=== PATIENT | male | born 1955 | race Caucasian/White ===

== ENCOUNTER 2022-03-15 05:53 | Inpatient (IN) ==
--- NOTE | 2022-01-25 10:02 | PAT Medication Instructions ---
Medication Instructions Date of Service January 25, 2022 Home Medications Medication Instructions Recorded lisinopril 10 mg tablet 10 mg PO .COMPLEX #30 tabs 10/19/21 lisinopril 5 mg tablet 5 mg PO .COMPLEX #30 tabs 10/19/21 paroxetine HCl 10 mg tablet (Paxil) 10 mg PO DAILY #30 tabs 10/22/21 atorvastatin 40 mg tablet 40 mg PO HS #30 tabs 12/21/21 metoprolol succinate 50 mg 50 mg PO DAILY #30 tabs 12/21/21 tablet,extended release 24 hr lisinopril 10 mg tablet 10 mg PO .COMPLEX lisinopril 5 mg tablet 5 mg PO .COMPLEX paroxetine HCl 10 mg tablet (Paxil) 10 mg PO DAILY aspirin 81 mg tablet,delayed release 81 mg PO QAM atorvastatin 40 mg tablet 40 mg PO HS metoprolol succinate 50 mg tablet,extended release 24 hr 50 mg PO DAILY albuterol sulfate 90 mcg/actuation aerosol inhaler (Ventolin HFA) 90 mcg inhalation QID PRN clopidogrel 75 mg tablet 75 mg PO QAM fluticasone fur. 100 mcg-umeclid 62.5 mcg-vilant 25 mcg inhalat.powder (Trelegy Ellipta) 100 inh inhalation QAM Continue as directed paroxetine HCl 10 mg tablet (Paxil) 10 mg PO DAILY metoprolol succinate 50 mg tablet,extended release 24 hr 50 mg PO DAILY Do NOT take day of surgery, can take evening before surgery if also taken at night: lisinopril 10 mg tablet 10 mg PO .COMPLEX lisinopril 5 mg tablet 5 mg PO .COMPLEX ASK your prescriber and surgeon aspirin 81 mg tablet,delayed release 81 mg PO QAM clopidogrel 75 mg tablet 75 mg PO QAM DO NOT take the morning of surgery lisinopril 10 mg tablet 10 mg PO .COMPLEX lisinopril 5 mg tablet 5 mg PO .COMPLEX Take morning of surgery With a small sip of water, OTHERWISE NOTHING TO EAT OR DRINK AFTER MIDNIGHT: albuterol sulfate 90 mcg/actuation aerosol inhaler (Ventolin HFA) 90 mcg inhalation QID PRN(use if needed; please bring with you to hospital day of surgery if possible) fluticasone fur. 100 mcg-umeclid 62.5 mcg-vilant 25 mcg inhalat.powder (Trelegy Ellipta) 100 inh inhalation QAM Take evening before surgery atorvastatin 40 mg tablet 40 mg PO HS albuterol sulfate 90 mcg/actuation aerosol inhaler (Ventolin HFA) 90 mcg inhalation QID PRN(if needed) Other Notes If you have any questions please call us at [phone] or [phone] or [phone] or [phone]
--- NOTE | 2022-02-01 08:16 | Anesthesiology Consultation ---
Date of Service February 01, 2022 Assessment & Plan (1) Encounter for pre-operative examination: - awaiting PCP management of hyponatremia. Workload note sent. - new degree of hyponatremia at 126. Case discussed regarding this and overall with Dr. Garza who advised notifying PCP regarding hyponatremia for evaluation and intervention as much as possible prior to upcoming intervention for severe left carotid artery re-stenosis. He advised nothing further needed from pulmonology standpoint. Raina with Dr. Vines's office made aware. - excessive alcohol intake. - cardiology office visit 12/21/21 [place]: "...Coronary artery calcifications: We discussed the diagnosis. No angina or heart failure symptoms. Ischemic evaluation recommended if he should develop symptoms concerning for angina. Otherwise, aggressive medical therapy. Continue aspirin 81 mg daily. Continue beta-valentino. Continue statin therapy but recommend high-intensity statin therapy. Recommended that he stop smoking. Contact the office immediately for symptoms concerning for ischemic heart disease. 911 for angina that does not resolve within 5 minutes...Carotid artery stenosis s/p left carotid endarterectomy: Asymptomatic. Continue to follow with vascular. Aggressive medical therapy as above...Alcohol consumption: Recommended that he consume no more than 1 or 2 alcoholic beverages per day...Follow-up in 1 year..." - pulmonology office visit 11/23/21: "...abnormal CT chest...some shortness of breath with usual activities...occasional cough mostly in the morning with production of clear phlegm...centrilobular emphysema...functional and tries to go about usual activities at his own pace...uses Breo as directed and finds it helpful...still has some shortness of breath but mostly with moderate to strenuous activities. No prior PFT within the documentation...scheduled for PFT and 6 minutes walk test prior to next visit...transition patient from Breo to Trelegy...suspicion for possible obstructive sleep apnea...scheduled for overnight pulse oximetry..." Pt states did not yet complete testing ordered by pulmonology. - COVID screening: Per assessment on 02/01/2022: Travel screen negative, no known COVID-19 positive contacts or current COVID-19 related symptoms in past 2 weeks. Pt vaccinated. To surgeon's discretion if preop COVID testing needed. Chart Review Chart Review: Pending: Refer to Additional Notes / Consult section and Patient seen in Pre Admission Testing Teaching & Discussion Pre-Anesthesia Teaching/Discussion Notes: Instructed NPO after midnight before surgery, except medications with 15 cc of water. Medication instructions provided according to the PAT guidelines. History Surgery Operation Date: 02/08/22 08:00 Proposed Procedures p Left Transcarotid Artery Revascularization - Demond Vines MD Height/Weight Height: 5 ft 10 in Weight: 65.2 kg Allergies Allergy/AdvReac Type Severity Reaction Status Date / Time No Known Allergies Allergy Verified 01/24/22 10:41 Medications Home Medications Medication Instructions Recorded Confirmed Last Taken lisinopril 10 mg tablet 10 mg PO .COMPLEX #30 tabs 10/19/21 01/24/22 Unknown lisinopril 5 mg tablet 5 mg PO .COMPLEX #30 tabs 10/19/21 01/24/22 Unknown paroxetine HCl 10 mg tablet (Paxil) 10 mg PO DAILY #30 tabs 10/22/21 01/24/22 U nknown aspirin 81 mg tablet,delayed 81 mg PO QAM 12/21/21 01/24/22 Unknown release atorvastatin 40 mg tablet 40 mg PO HS #30 tabs 12/21/21 01/24/22 Unknown metoprolol succinate 50 mg 50 mg PO DAILY #30 tabs 12/21/21 01/24/22 Unknown tablet,extended release 24 hr albuterol sulfate 90 mcg/actuation 90 mcg inhalation QID PRN 01/24/22 01/24/22 Unknown aerosol inhaler (Ventolin HFA) Shortness Of Breath Or Wheezing clopidogrel 75 mg tablet 75 mg PO QAM 01/24/22 01/24/22 Unknown fluticasone fur. 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 Exercise / Class Metabolic Activity II 4-5 Yardwork/Stairs/Walk up hill (denies CP or SOB with 1 FOS) Past Family History Family History Father Leukemia Mother Heart disease Sister Breast cancer Denies family history of Ovarian cancer Prostate cancer Myocardial infarction Colorectal cancer Past Surgical History Surgical History (Updated 02/01/22 @ 08:42 by Clarissa Pittman PA-C) FH: carotid endarterectomy left, 2011 H/O arthroscopic knee surgery L H/O elbow surgery R S/P colonoscopy Past Anesthesia History No Hx of Anesthesia Complications and No Family Hx of Anesthesia Complications History of PONV No Hx of PONV and No Hx of Motion Sickness Social History Smoking Status: Current every day smoker tobacco type: cigarettes Smoking cigarettes per day: 20 per day- advised Do You Dip or Chew Tobacco: No Hx Alcohol Use: Yes (4-6 cans beer per day) Alcohol type: beer alcohol intake frequency: 3 or more drinks per day Hx Substance Use: No substance use type: does not use Review of Systems Patient denies chest pain, shortness of breath, dyspnea on exertion, snoring, witnessed apneas, reflux, fever, chills, cough, wheezing, or palpitations. Physical Exam Vital Signs Vitals BP 157/79 P 65 TEMP 98.1 SP02 99% on RA RESP 17 Physical Full cervical extension range of motion without pain TMD 3.5 finger breadths Mallampati Score 3 Dentition: intact, denies chipped or loose teeth, caps/crowns, implants or bridges Lungs: normal respiratory effort. Good air movement, mild wheezes noted RLL, no rales or rhonchi Cardiac: regular rate and rhythm, no murmurs noted Lab Results Anesthesia Preop Results Results Anesthesia Widget: WBC 8.13 K/ul (4.8-10.8) 02/01/22 Hgb 13.9 g/dl (14.0-18.0) L 02/01/22 Hct 40.8 % (40.1-51.0) 02/01/22 Plt 328 K/uL (130-400) 02/01/22 Na 126 mmol/L (136-145) L 02/01/22 K 4.6 mmol/L (3.5-5.1) 02/01/22 Cl 90 mmol/L (98-107) L 02/01/22 CO2 27 mmol/L (21-32) 02/01/22 BUN 7 mg/dl (6-23) 02/01/22 Creat 0.59 mg/dl (0.6-1.4) L 02/01/22 Glucose Level 80 mg/dl (70-99(Fasting)) 02/01/22 PT 10.3 Seconds (9.0-12.0) 02/01/22 PTT 30.8 Seconds (21.0-31.0) 02/01/22 INR 1.0 (0.9-1.1) 02/01/22 Blood Type A Positive 02/01/22 Antibody Screen NEGATIVE 02/01/22 Testing Electrocardiogram Date: 02/01/22 NSR, rate 67 bpm Chest X-Ray Date: 02/01/22 The lungs are hyperexpanded with similar changes. No focal lung consolidations to suggest pneumonia. No evidence for pulmonary edema. The heart is normal in size. No pleural effusions. No pneumothorax. Vascular calcifications are noted at the neck base. Mild anterior wedging within the mid thoracic spine vertebral bodies likely chronic. IMPRESSION: 1. No acute process within the chest. 2. Emphysema. Echocardiogram Date: 07/10/19 EF 52% Normal LV wall motion No significant valvular pathology Other Testing Neck CTA 12/06/21 There are vascular calcifications of the aortic arch. There is mild luminal narrowing of the proximal left subclavian artery. There is mild to moderate stenosis of the origin of the left vertebral artery. There are additional areas of mild luminal narrowing of the V2 segment of the left vertebral artery. The left vertebral artery is dominant. There are vascular calcifications of the origin of the left common carotid artery. There is prominent noncalcified plaque seen within the distal left common carotid artery. There is calcified and noncalcified plaque seen within the proximal cervical segment of the left ICA. The prominent noncalcified plaque within the proximal cervical segment of the left ICA measures 3.5 mm in thickness. There is approximately 69 percent stenosis of the proximal cervical segment of the left ICA. The extracranial left ICA is patent. The origin of the innominate artery is unremarkable. The origin of the right common carotid artery is unremarkable. There is approximately 46 percent stenosis of the proximal cervical segment of the right ICA. There is mild stenosis of the proximal right subclavian artery. The origin of the right vertebral artery is visualized. There is mild stenosis of the mid V2 segment of the right vertebral artery. The V4 segments of the vertebral arteries are patent. The left vertebral artery is dominant. There are patent bilateral PICAs. The basilar artery is patent. The proximal superior cerebellar arteries are patent. The bilateral posterior cerebral arteries are patent. The internal carotid arteries are patent through the skull base. There are vascular calcifications of the cavernous segments of the bilateral ICAs. The basilar artery is patent. The proximal superior cerebellar arteries are patent. The bilateral posterior cerebral arteries are patent. There is mild luminal narrowing of the cavernous segment of the left ICA. The left M1 segment is patent. The right M1 segment is patent. The proximal M2 branches are patent. The proximal A2 branches are patent. Additional findings: There is minimal anterolisthesis of C3 on C4. There is intervertebral disc space narrowing, endplate osteophyte formation, and endplate degenerative changes at C4-C5. The bones are osteopenic. The vertebral body heights are grossly maintained. There is multilevel facet hypertrophy of the cervical spine. There is asymmetric right facet arthropathy at C3-C4 and C4-C5. There is endplate osteophyte formation at T3-T4, T4-T5, T5-T6 and T6-T7. There is a Schmorl's node within the superior endplate of T7. There is mild mucosal thickening of the left frontal sinus. There is mild mucosal thickening of the ethmoid air cells. There is mucosal thickening with an air-fluid level and bubbly secretions seen within the left maxillary sinus, worrisome for sinusitis. There is scatter artifact from dental prosthetics. The mastoid air cells are clear. There are degenerative changes of the temporomandibular joints. There are postsurgical changes seen along the left side of the neck. No focal consolidation is identified within the lung apices. There is a right thyroid nodule that measures 5 mm. IMPRESSION 1. Approximately 69 percent stenosis of the proximal cervical segment of the left ICA. Prominent noncalcified plaque seen within the proximal cervical segm ent of the left ICA that measures 3.5 mm in thickness. 2. Approximately 46 percent stenosis of the proximal cervical segment of the right ICA. 3. Left maxillary sinusitis. 4. Additional findings as described above. Carotid duplex 11/10/21 70-99% stenosis L ICA 50-69% stenosis R ICA CT chest, abdomen and pelvis 11/10/21 Aeration is stable compared to previous. Stable pinpoint subcentimeter nodules are not changed. No significant new parenchymal lesions or nodules identified. Mild atherosclerotic calcification of the coronary arteries Stable chronic changes of the lung parenchyma No acute or active disease identified
--- NOTE | 2022-03-14 12:01 | History & Physical Report ---
Date of Service March 14, 2022 Assessment & Plan (1) Stenosis of left carotid artery without cerebral infarction: Plan: Patient admitted for left TCAR procedure. I have discussed the risks options and benefits of the procedure with the patient. The patient understands the risks options and benefits and agrees to the procedure. History of Present Illness Primary Care Provider: Luciano Jacobo DO Mr. Soler is a very pleasant 66-year-old male with significant history of the bilateral carotid artery disease. He had a prior left CEA by Dr. Barrientos at [facility] in 2011. He is here for concern of recurrent stenosis. We saw him in October and at that time he was asymptomatic but the ultrasound demonstrated 60 to 79% stenosis on the left and 50 to 69% on the right. For that reason, we requested a CTA. Today, he has no complaints. He has no focal deficits, no motor or sensory loss, no slurred speech or visual changes. He is on aspirin and he continues to smoke 1 pack/day. His CT angiogram shows a greater 90% restenosis of the left internal carotid artery at its origin Allergies Allergy/AdvReac Type Severity Reaction Status Date / Time No Known Allergies Allergy Verified 02/25/22 08:39 Home Medications Medication Instructions Recorded Confirmed Type lisinopril 10 mg tablet 10 mg PO .COMPLEX #30 tabs 10/19/21 02/25/22 Rx lisinopril 5 mg tablet 5 mg PO .COMPLEX #30 tabs 10/19/21 02/25/22 Rx aspirin 81 mg tablet,delayed 81 mg PO QAM 12/21/21 02/25/22 History release atorvastatin 40 mg tablet 40 mg PO HS #30 tabs 12/21/21 02/25/22 Rx metoprolol succinate 50 mg 50 mg PO DAILY #30 tabs 12/21/21 02/25/22 Rx tablet,extended release 24 hr albuterol sulfate 90 mcg/actuation 90 mcg inhalation QID PRN 01/24/22 02/25/22 History aerosol inhaler (Ventolin HFA) Shortness Of Breath Or Wheezing clopidogrel 75 mg tablet 75 mg PO QAM 01/24/22 02/25/22 History fluticasone fur. 100 mcg-umeclid 100 inh inhalation QAM 01/24/22 02/25/22 History 62.5 mcg-vilant 25 mcg inhalat.powder (Trelegy Ellipta) paroxetine HCl 10 mg tablet (Paxil) 10 mg PO DAILY #30 tabs 02/08/22 02/25/22 Rx doxycycline hyclate 100 mg tablet 100 mg PO BID 10 days #20 tabs 02/16/22 02/25/22 Rx prednisone 10 mg tablet See Rx Instructions PO DAILY #30 02/16/22 02/25/22 Rx tabs Past Med/Surg History Medical History Alcohol dependence Carotid stenosis restenosis > 90% L ICA; h/o left carotid endarterectomy 2011 Coronary artery calcification seen on CAT scan Emphysema of left lung HTN (hypertension) controlled, stable per pt Hyperlipidemia Lumbar degenerative disc disease On anticoagulant therapy plavix Pulmonary nodules/lesions, multiple Situational anxiety Smoker 1 pack per day 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 at [facility], no residual effects Suspected sleep apnea pulmonology ordered overnight pulse oximetry, not yet completed Surgical History FH: carotid endarterectomy left, 2011 H/O arthroscopic knee surgery L H/O elbow surgery R S/P colonoscopy Family History Father Leukemia Mother Heart disease Sister Breast cancer Denies family history of Ovarian cancer Prostate cancer Myocardial infarction Colorectal cancer Social History Smoking Status: Current every day smoker Cigarettes Per Day: 20 per day- advised; Second Hand Exposure: No; Do You Dip or Chew Tobacco: No; Tobacco Cessation Education Requested by Patient: No Hx Alcohol Use: Yes (4-6 cans beer per day) Alcohol type: beer Hx Substance Use: No Preferred Language: Mongolian Communication Ability: Effective Visual Impairment: No Limitations Hearing Ability: Normal Senior Firmware Engineer Required: No Beliefs That Will Affect Care: None marital status: Current Living Situation: Spouse current occupational status: employed and 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 Other Information That Helps Us Care for You: No Feels Safe at Home: Yes Safety Concerns: Feels Safe At This Time Childhood Exposure to Second-Hand Smoke: Yes Dental Care, Regularly: No Physical Activity Frequency: Does not Exercise Seatbelt Use: always Assistive Devices: Glasses Review of Systems All systems reviewed & are unremarkable except as noted in HPI & below Physical Exam Constitutional: WD/WN, vitals as above Neck: trachea midline Respiratory: normal respiratory effort, lungs clear to auscultation Cardiovascular: RRR, no murmur, no edema Vessels: normal peripheral pulses Extremities: normal capillary refill; no edema Gastrointestinal (Abdomen): normal bowel sounds, soft, nontender, no hepatosplenomegaly Musculoskeletal: no cyanosis or clubbing, extremities motor strength 5/5 Neurologic: normal touch/pain/proprioception, CN's II-XI intact bilaterally and moves all extremities Psychiatric: Orientation: alert and oriented x 3
[2022-03-15] MEDS ORDERED: CEFAZOLIN 1,000 MG/7.5 ML SYR IV SCH (06:00)
[2022-03-15] MEDS ORDERED: LACTATED RINGER'S 1,000 ML IV SCH (06:00)
[2022-03-15] MEDS ORDERED: SUGAMMADEX SODIUM 200 MG/2 ML VIAL IV ONE ×2 (06:55→12:52)
[2022-03-15] MEDS ORDERED: GELATIN SPONGE SZ 100 ONE ×2 (07:01→12:13)
[2022-03-15] MEDS ORDERED: THROMBIN FOR SOLN 20000 UNIT KIT ONE ×2 (07:01→12:13)
[2022-03-15] MEDS ORDERED: HYDROmorphone INJ 2 MG/ML SYR/VIAL IV PRN (07:25)
[2022-03-15] MEDS ORDERED: fentaNYL citrate 100 MCG/2 ML VIAL IV PRN (07:25)
[2022-03-15] MEDS ORDERED: ePHEDrine sulfate 50 MG/ML AMP IV PRN (07:25)
[2022-03-15] MEDS ORDERED: ATROPINE SULFATE 0.1 MG/ML 10ML SYR IV PRN (07:25)
[2022-03-15] MEDS ORDERED: ONDANSETRON INJ 2 MG/ML 2 ML VIAL IV PRN (07:25)
[2022-03-15] MEDS ORDERED: DEXAMETHASONE SOD INJ 4 MG/ML VIAL ONE ×2 (07:33→12:46)
[2022-03-15] MEDS ORDERED: ROCURONIUM BROMIDE 10 MG/ML 5 ML VIAL IV ONE ×3 (07:33→12:45)
[2022-03-15] MEDS ORDERED: ONDANSETRON INJ 2 MG/ML 2 ML VIAL ONE (07:33)
[2022-03-15] MEDS ORDERED: LIDOCAINE 2% MPF LOCAL 5 ML VIAL INFIL ONE (07:33)
[2022-03-15] MEDS ORDERED: PROPOFOL IV EMULSION 10 MG/ML 20 ML VIAL IV ONE ×2 (07:33→12:45)
[2022-03-15] MEDS ORDERED: MIDAZOLAM HCL 1 MG/ML 2ML VIAL ONE (07:33)
[2022-03-15] MEDS ORDERED: fentaNYL citrate 100 MCG/2 ML VIAL ONE ×3 (07:33→12:45)
--- NOTE | 2022-03-15 07:44 | History & Physical Bridge Note ---
Date of Service March 15, 2022 History & Physical Bridge Note I have examined the patient, reviewed the History & Physical and in the interval since the performance of the History & Physical I have noted the following changes of clinical significance: no changes noted
[2022-03-15] MEDS ORDERED: VISIPAQUE IV ONE (09:16)
[2022-03-15] MEDS ORDERED: ARISTA ABSORBABLE HEMOSTAT 3GM TOP ONE (09:18)
--- NOTE | 2022-03-15 09:42 | Operative Report ---
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: I identified the patient and participated in the time-out.: Yes Procedure Operation Date: 03/15/22 08:00 Actual Procedures p Left Transcarotid Artery Revascularization(Left), Ultrasound localization of right femoral vein- Demond Vines MD Surgeon Demond Vines MD Production Control Analyst Jameel,PAC Estimated Blood Loss 20 Findings Consistent with Post-Op Diagnosis Specimens none Anesthesia Type General Complications none Disposition Accompanied Patient To Recovery: No Disposition: Recovery Room Indications This is a 67-year-old male who had a left carotid endarterectomy 2 years prior to this. On routine follow-up he was found to have severe restenosis of the carotid artery site. Endarterectomy versus TCAR were discussed. Patient elected to go ahead with a TCAR approach. I have discussed the risks options and benefits of the procedure with the patient. The patient understands the risks options and benefits and agrees to the procedure. Description of Procedure The patient was taken to the operating room and placed in supine position. After general anesthesia was accomplished the groins and left side of the neck and chest were prepped and draped in a sterile manner. Timeout was performed and the patient was identified. A transverse incision was made just above the clavicle between the heads of the sternocleidomastoid. This was carried down to where the common carotid artery was identified. It was isolated and slung with an umbilical tape. It was given 7000units of heparin at that time. Ultrasound was then used to localize the left common femoral vein. The vein was patent and compressed easily. Under ultrasound guidance the left common femoral vein was punctured and the venous sheath was inserted. This was aspirated and flushed with heparinized saline. An ACT at that time was 352. Using micropuncture technique the common carotid artery was punctured. The micro sheath was inser sai to 3 cm. Injection was then done showing the bifurcation. There was a significant lesion seen at the origin of the internal carotid artery on the left side. We reinserted the micro wire and passed it into the external carotid. We then advanced the dilator and sheath into the external carotid. The dilater and sheath were removed. We then inserted the J-wire into the external carotid artery. The TCAR sheath was inserted. Once it was in place and held against the artery it was sutured to the chest wall and the incision edge. We then flushed the tubing appropriately. The venous return tubing was clamped onto the TCAR sheath. It was flushed through and then attached to the venous inflow sheath in the right groin. The sheath was checked for flow. We then inserted a 4 x 3 balloon backloaded on the wire. The wire was passed through the lesion into the petrous portion of the internal carotid. The 4 balloon was then advanced to the lesion. The lesion was then predilated with the 4 mm balloon. The balloon was removed. We then inserted the 8 x 40 stent. This was deployed across the lesion without difficulty. The catheter was removed. The carotid was allowed to go 2 minutes with flow reversal. Completion angiogram was done at that time which showed no residual stenosis.The wire was removed we allowed 2 minutes of flow reversal to occur. A that point the common carotid artery was unclamped. The venous return tubing was clamped and removed from the TCAR sheath. The blood was allowed to flow back into the venous system. Once this was completed the sheath was pulled from the groin and pressure was applied. The TCAR sheath was then removed and the 5-0 Prolene suture securely tied. Hemostasis was noted of the puncture site. Wound was irrigated with Ancef solution. Adequate hemostasis was obtained of the wound. Once this was noted the wound was closed in usual fashion using a 3-0 Vicryl suture for the subcutaneous layer and kentrell for the skin. Sterile dressings were applied to the wound. The patient left the operation room in satisfactory condition and tolerated the procedure well. All needle and sponge counts were correct at the end of the procedure. Fozia Li Pac assisted due to lack of resident availability and was necessary for positioning, draping, retraction, wound closure deep layers, subcutaneous tissue, and skin closure and was necessary for assisting with the case. I attest to the content of the Intraoperative Record and any orders documented therein. Any exceptions are noted below.
[2022-03-15] MEDS ORDERED: HEPARIN SOD (PORCINE) 1000 UNIT/ML ONE (10:01)
[2022-03-15] MEDS ORDERED: PROTAMINE SULFATE 10 MG/ML 5 ML VIAL ONE (10:02)
[2022-03-15] MEDS ORDERED: GLYCOPYRROLATE 0.2 MG/ML VIAL ONE (10:02)
[2022-03-15] MEDS ORDERED: lisinopril 5 MG TAB PO SCH (10:49)
[2022-03-15] MEDS ORDERED: oxyCODONE/ACETAMINOPHEN 5mg/325mg TAB PO PRN (10:49)
[2022-03-15] MEDS ORDERED: ALBUTEROL HFA 8 GM INHALER INH PRN (10:49)
--- NOTE | 2022-03-15 11:23 | Critical Care Consultation ---
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 Continue frequent neurovascular checks as per vascular surgery recommendations. Continue dual antiplatelet therapy and statin therapy. Blood pressure parameters per vascular surgery. Art line in place. (2) Tobacco abuse: Smoking cessation encouraged. Patient follows with [facility] pulmonology as an outpatient. Recently underwent a low-dose CT chest which was read as lung RADS category 2. Continue home inhaler. (3) Hypertension: Home antihypertensives restarted by vascular surgeon. History of Present Illness Reason for Consultation: Monitoring status post left TCAR Attending Physician: Demond Vines MD History of Present Illness 67-year-old male with a past medical history of restenosis of the left carotid artery status post endarterectomy in 2011, pulmonary emphysema, tobacco abuse, hypertension and hyperlipidemia who presented to the hospital for an elective TCAR of the left carotid artery. This was performed earlier today by Dr. Vines. Patient denies any complaints presently including shortness of breath, chest pain, weakness or nausea. Radial arterial line in place. Systolic blood pressures largely in the 140s. Allergies Allergy/AdvReac Type Severity Reaction Status Date / Time No Known Allergies Allergy Verified 03/15/22 06:19 Home Medications Medication Instructions Recorded Confirmed Type lisinopril 10 mg tablet 10 mg PO .COMPLEX #30 tabs 10/19/21 03/15/22 Rx lisinopril 5 mg tablet 5 mg PO .COMPLEX #30 tabs 10/19/21 03/15/22 Rx aspirin 81 mg tablet,delayed 81 mg PO QAM 12/21/21 03/15/22 History release metoprolol succinate 50 mg 50 mg PO DAILY #30 tabs 12/21/21 03/15/22 Rx tablet,extended release 24 hr albuterol sulfate 90 mcg/actuation 90 mcg inhalation QID PRN 01/24/22 03/15/22 History aerosol inhaler (Ventolin HFA) Shortness Of Breath Or Wheezing clopidogrel 75 mg tablet 75 mg PO QAM 01/24/22 03/15/22 History fluticasone fur. 100 mcg-umeclid 100 inh inhalation QAM 01/24/22 03/15/22 History 62.5 mcg-vilant 25 mcg inhalat.powder (Trelegy Ellipta) paroxetine HCl 10 mg tablet (Paxil) 10 mg PO DAILY #30 tabs 02/08/22 03/15/22 Rx simvastatin 40 mg tablet 40 mg PO QPM #90 tabs 03/14/22 03/15/22 Rx Patient History Medical History (Updated 03/15/22 @ 11:21 by Asad Soliz MD) Alcohol dependence Carotid stenosis restenosis > 90% L ICA; h/o left carotid endarterectomy 2011 Coronary artery calcification seen on CAT scan Emphysema of left lung HTN (hypertension) controlled, stable per pt Hyperlipidemia Hypertension Lumbar degenerative disc disease On anticoagulant therapy plavix Pulmonary nodules/lesions, multiple Situational anxiety Smoker 1 pack per day 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 at [facility], no residual effects Suspected sleep apnea pulmonology ordered overnight pulse oximetry, not yet completed Surgical History FH: carotid endarterectomy left, 2011 H/O arthroscopic knee surgery L H/O elbow surgery R S/P colonoscopy Family History Father Leukemia Mother Heart disease Sister Breast cancer Denies family history of Ovarian cancer Prostate cancer Myocardial infarction Colorectal cancer Social History Smoking Status: Current every day smoker Cigarettes Per Day: 20 per day- advised; Second Hand Exposure: No; Do You Dip or Chew Tobacco: No; Tobacco Cessation Education Requested by Patient: No Hx Alcohol Use: Yes (4-6 cans beer per day) Alcohol type: beer Hx Substance Use: No Preferred Language: Turkish Communication Ability: Effective Visual Impairment: No Limitations Hearing Ability: Normal Online Marketing Analyst Required: No Beliefs That Will Affect Care: None marital status: Current Living Situation: Spouse current occupational status: employed and retired 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 Patient is in no apparent distress. Patient is well-developed. Eyes: Pupils are equal round and reactive to light. Conjunctivae are normal. Anicteric sclera. Ears nose, mouth and throat: Deferred Neck: Trachea is midline. Pressure bandaging noted over the left neck and clavicular region. The gauze appears to be soaked in blood. Respiratory: Clear to auscultation bilaterally. No use of accessory muscles. No significant clubbing noted. Cardiovascular: Regular rate and rhythm. No murmurs. No edema. Gastrointestinal: Normal bowel sounds, soft, nontender and nondistended. No hepatosplenomegaly noted. Musculoskeletal: No cyanosis. Patient is able to move all extremities. Strength is 5 out of 5 in the upper and lower extremities. Skin: No rashes, warm dry and intact. Neurologic: No obvious focal neurological deficits seen. Psychiatric: Alert and oriented x3 with a euthymic affect. Results & Data Results & Data ([facility]) Vital Signs (Past 12 Hours) Vital Signs Temp Pulse Pulse Resp BP BP BP 03/15/22 10:30 36.4 C L 72 16 134/78 142/66 H 03/15/22 10:10 76 15 147/81 H 153/76 H 03/15/22 10:00 81 13 133/87 141/62 H 03/15/22 10:20 71 14 136/78 150/73 H 03/15/22 09:50 36.0 C L 83 17 160/97 H 144/71 H 03/15/22 06:22 36.5 C 74 18 132/73 143/81 H Pulse Ox O2 Del Method O2 Flow Rate 03/15/22 10:30 97 Nasal Cannula 2 03/15/22 10:10 97 Oxymask 2 03/15/22 10:00 100 Oxymask 6 03/15/22 10:20 92 Room Air 03/15/22 09:50 100 Oxymask 6 03/15/22 06:22 97 Room Air Coding Level of Care Code 47638 Inpt Consult Level 4 Diagnoses 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
--- NOTE | 2022-03-15 11:41 | Anesthesiology Progress Note ---
Date of Service March 15, 2022 Anesthesia Post Procedure Vital Signs Vital Signs: Temp Pulse Pulse Resp BP BP BP 03/15/22 10:30 36.4 C L 72 16 134/78 142/66 H 03/15/22 10:10 76 15 147/81 H 153/76 H 03/15/22 10:00 81 13 133/87 141/62 H 03/15/22 10:20 71 14 136/78 150/73 H 03/15/22 09:50 36.0 C L 83 17 160/97 H 144/71 H 03/15/22 06:22 36.5 C 74 18 132/73 143/81 H Pulse Ox O2 Del Method O2 Flow Rate 03/15/22 10:30 97 Nasal Cannula 2 03/15/22 10:10 97 Oxymask 2 03/15/22 10:00 100 Oxymask 6 03/15/22 10:20 92 Room Air 03/15/22 09:50 100 Oxymask 6 03/15/22 06:22 97 Room Air Transfer of Care Handoff Completed per policy Notes Mental Status: alert / awake / arousable and participated in evaluation Patient Amnestic to Procedure: Yes Nausea / Vomiting: adequately controlled Pain: adequately controlled Airway Patency, RR, SpO2: stable & adequate BP & HR: stable & adequate Hydration State: stable & adequate Anesthetic Complications: no major complications apparent and Pt Satisfied with anesthetic care
[2022-03-15] MEDS: LACTATED RINGER'S 1,000 ML IV SCH ×2 (11:55→21:03)
[2022-03-15] MEDS: lisinopril 10 MG TAB PO SCH (12:07)
[2022-03-15] MEDS: lisinopril 5 MG TAB PO SCH (12:07)
[2022-03-15] MEDS ORDERED: LIDOCAINE 1% LOCAL 20 ML VIAL ONE (12:12)
[2022-03-15] MEDS ORDERED: HEPARIN (PORCINE) 1000 UNIT/ML 10 ML (CATH LAB USE ONLY) ONE (12:12)
[2022-03-15] MEDS ORDERED: ceFAZolin 330 MG/ML 1 GM VIAL ONE ×2 (12:13→12:45)
[2022-03-15] MEDS ORDERED: BUPIVACAINE 0.5 % 5 MG/1 ML MPF 30ML VIAL ONE (12:13)
[2022-03-15] MEDS ORDERED: EPINEPHrine INJ 1 MG/ML AMP ONE (12:13)
--- NOTE | 2022-03-15 12:23 | Communication Note ---
Date of Service: March 15, 2022 Patient developed significant hematoma of the incision and left side of neck. Exploration was recommended. Patient and his understood the risks options and benefits and agree to the emergency procedure.
[2022-03-15] MEDS ORDERED: SODIUM CHLORIDE 0.9% INJ 10 ML VIAL ONE (12:45)
[2022-03-15] MEDS ORDERED: LIDOCAINE 2% 2 ML VIAL/AMP(20MG/ML) INFIL ONE (12:45)
[2022-03-15] MEDS ORDERED: ePHEDrine sulfate 50 MG/ML SYR ONE (12:48)
[2022-03-15] MEDS ORDERED: PNEUMOCOCCAL POLYSACCHARIDES 25 MCG/0.5 ML VIAL/SYR IM ONE (12:56)
[2022-03-15] MEDS ORDERED: INFLUENZA VACCINE HIGH DOSE PF 65+ 0.7 ML SYR IM ONE (12:56)
--- NOTE | 2022-03-15 13:05 | Operative Report ---
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: Operation Date: 03/15/22 09:05 Pre-Op Diagnosis: Left Neck Post-Op Hematoma Post-Op Diagnosis: Left Neck Post-Op Hematoma I identified the patient and participated in the time-out.: Yes Procedure Operation Date: 03/15/22 08:00 Actual Procedures p Left Transcarotid Artery Revascularization(Left) - Demond Vines MD Operation Date: 03/15/22 09:05 Actual Procedures p Exploration of Left Neck Wound, Control of Bleeding(Left) - Demond Vines MD Surgeon Demond Vines MD Transmitter Operator SANA Jorgensen Estimated Blood Loss 20 Findings Consistent with Post-Op Diagnosis Specimens None Anesthesia Type General Complications none Disposition Accompanied Patient To Recovery: No Disposition: Recovery Room Indications This is a 67-year-old gentleman who underwent a TCAR from a supraclavicular incision left side of his neck earlier today. Subsequent to this he has develop ed a hematoma in the left side of the neck. There is a significant amount of swelling supraclavicularly on the left side. Exploration was recommended. This was discussed with the patient and his . They agreed to go ahead with this procedure. Description of Procedure The patient was taken to the operating room and placed in the supine position. The left-sided neck was then prepped and draped in a sterile manner after intubation was accomplished. The patient was identified and timeout was performed. The kentrell were removed from the incision. The Vicryl suture in the subcutaneous tissue was also removed. The wound was opened. There was a golf ball size hematoma present which was evacuated. There is no active arterial bleeding noted. There was a generalized ooze in the base of the wound. This was beneath the carotid and vagus. All bleeding sites were controlled with electrocautery. The wound was also sprayed with thrombin. The wound was then irrigated with Ancef solution. Adequate hemostasis was seen with no further bleeding from the wound edges. A JOSEE drain was then placed in the depths of the wound and brought out through a separate stab incision. Wound was then closed with a running 3-0 Vicryl suture for the subcutaneous layer and kentrell for the skin. Sterile dressings were applied to the wound. Patient was transferred back to the ICU.The patient left the operation room in satisfactory condition and tolerated the procedure well. All needle and sponge counts were correct at the end of the procedure. Fozia Li Pac assisted due to lack of resident availability and was necessary for positioning, draping, retraction, wound closure deep layers, subcutaneous tissue, and skin closure and was necessary for assisting with the case. I attest to the content of the Intraoperative Record and any orders documented therein. Any exceptions are noted below.
--- NOTE | 2022-03-15 13:52 | Anesthesia Procedure Note ---
Anesthesia Procedure Note Arterial Line Note Patient medical history, medications, allergies and vitals reviewed. Consent: Risk / Benefits Reviewed With: PT / POA / Parent / Guardian, Accepts Plan, Informed Consent Obtained and All Questions Answered Monitors attached: Blood Pressure, CO2, EKG and Pulse Oximetry Time out completed: Yes Premedication: Midazolam (mg) (2) Laterality: Left Location: Radial Hand hygeine: Alcohol based hand rub Equipment/Supplies: Cap, Mask, Sterile gloves, Sterile drapes and Sterile procedures used Skin prep: Chloraprep Local medication: 1% Lidocaine (ml) Ultrasound used: Yes US equipment and supplies: Sterile Gel Enrico test: Negative (returnof flow) Attempts: 2 Procedure Summary: 20 gauge angiocath advanced until return of bright red blood. Catheter threaded using seldinger technique with return of pulsatile, bright red blood. Catheter secured with tape and covered with occlusive dressing. Waveform consistent with correct arterial placement. After placement, normal perfusion was observed distal to the site of catheter placement. procedure completed prior to OR. late entry Post-Procedure: Pt hemodynamically stable, Pt tolerates well and No complication Anesthesia Charges Arterial Line A Line Charges: 57954 Insert Art line [facility]
--- NOTE | 2022-03-15 13:53 | Anesthesiology Progress Note ---
Date of Service March 15, 2022 Anesthesia Post Procedure Vital Signs Vital Signs: Temp Pulse Pulse Pulse Resp BP BP 03/15/22 13:25 147/96 H 03/15/22 13:25 90 15 03/15/22 13:21 92 H 17 03/15/22 13:21 142/91 H 03/15/22 13:20 95 H 19 03/15/22 12:15 76 23 03/15/22 12:00 75 15 03/15/22 12:00 124/70 03/15/22 11:45 78 20 03/15/22 11:45 120/71 03/15/22 11:37 69 16 03/15/22 10:30 36.4 C L 72 16 134/78 03/15/22 10:10 76 15 147/81 H 03/15/22 10:00 81 13 133/87 03/15/22 10:20 71 14 136/78 03/15/22 09:50 36.0 C L 83 17 160/97 H 03/15/22 06:22 36.5 C 74 18 132/73 BP BP Pulse Ox O2 Del Method O2 Flow Rate 03/15/22 13:25 03/15/22 13:25 100 03/15/22 13:21 100 03/15/22 13:21 03/15/22 13:20 100 03/15/22 12:15 95 03/15/22 12:00 96 03/15/22 12:00 03/15/22 11:45 96 03/15/22 11:45 03/15/22 11:37 95 03/15/22 10:30 142/66 H 97 Nasal Cannula 2 03/15/22 10:10 153/76 H 97 Oxymask 2 03/15/22 10:00 141/62 H 100 Oxymask 6 03/15/22 10:20 150/73 H 92 Room Air 03/15/22 09:50 144/71 H 100 Oxymask 6 03/15/22 06:22 143/81 H 97 Room Air Transfer of Care Handoff Completed per policy Notes Mental Status: alert / awake / arousable and participated in evaluation Patient Amnestic to Procedure: Yes Nausea / Vomiting: adequately controlled Pain: adequately controlled Airway Patency, RR, SpO2: stable & adequate BP & HR: stable & adequate Hydration State: stable & adequate Anesthetic Complications: no major complications apparent and Pt Satisfied with anesthetic care
[2022-03-15] MEDS: ceFAZolin 1000MG 1,000 MG/7.5 ML SYR IV SCH ×2 (16:14→21:08)
[2022-03-15] MEDS ORDERED: Nursing to Pharmacy Communication SCH (20:00)
[2022-03-15] MEDS ORDERED: SIMVASTATIN 40 MG TAB PO SCH (21:00)
[2022-03-15] MEDS ORDERED: GLUCOSE 40% GEL 15 GM TUBE PO PRN (23:51)
[2022-03-15] MEDS ORDERED: DEXTROSE 50% 50 ML SYRINGE IV PRN (23:51)
[2022-03-15] MEDS ORDERED: GLUCOSE 10 TAB/TUBE PO PRN (23:51)
[2022-03-15] MEDS ORDERED: GLUCAGON FOR INJ 1 MG VIAL SQ PRN (23:51)
[2022-03-15] MEDS ORDERED: CARBOHYDRATES FOR HYPOGLYCEMIA PO PRN (23:51)
[2022-03-15] MEDS ORDERED: ICU MODERATE HYPERGLYCEMIA PROTOCOL ONE (23:57)
[2022-03-16] MEDS: INSULIN ASPART PER UNIT SC SCH ×3 (00:25→11:46)
[2022-03-16] MEDS: lisinopril 10 MG TAB PO SCH (08:25)
[2022-03-16] MEDS: lisinopril 5 MG TAB PO SCH (08:26)
[2022-03-16] MEDS ORDERED: ICU Protocol for HYPERglycemia SCH (09:00)
[2022-03-16] MEDS ORDERED: METOPROLOL SUCC 50MG EXT REL TAB PO SCH (09:00)
[2022-03-16] MEDS ORDERED: UMECLIDINIUM/VILANTEROL 62.5/25MCG 7 PUFFS/INHALER INH SCH (09:00)
[2022-03-16] MEDS ORDERED: PARoxetine HCL 10 MG TAB PO SCH (09:00)
[2022-03-16] MEDS ORDERED: ASPIRIN 81 MG ECTAB PO SCH (09:00)
[2022-03-16] MEDS ORDERED: FLUTICASONE FUROATE 100MCG 14 PUFFS/INHALER INH SCH (09:00)
[2022-03-16] MEDS ORDERED: CLOPIDOGREL BISULFATE 75 MG TAB PO SCH (09:00)
[2022-03-16] MEDS ORDERED: NON-FORMULARY MEDICATION (Fluticasone-Umeclidin-Vilanter [Trelegy Ellipta] 100-62.5-25 mcg INH SCH (09:00)
--- NOTE | 2022-03-16 09:00 | Critical Care Progress Note ---
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 Continue frequent neurovascular checks as per vascular surgery recommendations. Continue dual antiplatelet therapy and statin therapy. Blood pressure parameters per vascular surgery. Art line in place. JOSEE drain in place and to be removed by vascular surgery later today. (2) Tobacco abuse: Plan: Smoking cessation encouraged. Patient follows with [facility] pulmonology as an outpatient. Recently underwent a low-dose CT chest which was read as lung RADS category 2. (3) Hypertension: Plan: Home antihypertensives restarted by vascular surgeon. (4) Chronic obstructive pulmonary disease: Plan: Continue home inhalers. Patient with mild wheeze today. No clear indications of COPD exacerbation. Follows with [facility] pulmonology as above. Admission and Anticipated Discharge Date Admission Date: March 15, 2022 Subjective Patient seen and examined. Doing well tolerating breakfast. JOSEE drain with minimal drainage. Denies any significant complaints of pain. Hemodynamics st able. Review of Systems Review of Systems: All systems reviewed & are unremarkable except as noted in HPI & below Physical Exam Physical Exam: Constitutional: Patient appears to be of their stated age. Patient is in no apparent distress. Patient is well-developed. Eyes: Pupils are equal round and reactive to light. Conjunctivae are normal. Anicteric sclera. Ears nose, mouth and throat: Deferred Neck: Trachea is midline. JOSEE drain in place with bandaging on the left. Mild bruising at the base of the neck on the left posterior aspect Respiratory: Mild expiratory wheeze. No tachypnea. Cardiovascular: Regular rate and rhythm. No murmurs. No edema. Gastrointestinal: Normal bowel sounds, soft, nontender and nondistended. No hepatosplenomegaly noted. Musculoskeletal: No cyanosis. Patient is able to move all extremities. Strength is 5 out of 5 in the upper and lower extremities. Skin: No rashes, warm dry and intact. Neurologic: No obvious focal neurological deficits seen. Psychiatric: Alert and oriented x3 with a euthymic affect. Results & Data Results & Data ([facility]) Vital Signs (Past 12 Hours) Vital Signs Pulse Resp BP Pulse Ox O2 Del Method 03/16/22 08:00 91 H 18 94 03/16/22 08:00 122/98 03/16/22 07:00 76 14 90 03/16/22 07:00 120/73 03/16/22 06:00 90 16 92 Room Air 03/16/22 06:00 117/67 03/16/22 05:00 78 14 90 Room Air 03/16/22 04:00 77 15 91 Room Air 03/16/22 03:00 76 16 94 Room Air 03/16/22 03:00 128/70 03/16/22 02:45 96 H 12 94 Room Air 03/16/22 02:07 99/61 L 03/16/22 02:07 82 19 94 03/16/22 02:05 90 12 95 03/16/22 02:00 81 13 91 03/16/22 01:00 83 17 90 03/16/22 01:00 102/63 03/16/22 00:00 133/71 03/16/22 00:00 92 H 14 91 03/15/22 23:00 78 17 94 03/15/22 23:00 138/79 03/15/22 22:00 85 17 93 03/15/22 21:00 74 14 93 03/15/22 21:00 143/83 H 03/16/22 00:00 80 Coding Level of Care Code 01697 Subseq Hosp Care Lvl 2 Diagnoses 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
--- NOTE | 2022-03-16 13:50 | Surgery Progress Note ---
Date of Service March 16, 2022 Assessment & Plan (1) S/P arterial stent: Plan: Patient doing well. Will d/c today. Admission and Anticipated Discharge Date Admission Date: March 15, 2022 Subjective Patient without complaint. No focal deficits. Minimal incisional pain. Physical Exam 2 Constitutional: well developed and well nourished Neck: trachea midline Respiratory: normal respiratory effort; no respiratory distress Cardiovascular: RRR, no murmur, no edema Extremities: normal capillary refill Musculoskeletal: no cyanosis or clubbing, extremities motor strength 5/5 Skin: + incision (dry and clean. Drain with min serous drainage.) Neurologic: CN's II-XI intact bilaterally and moves all extremities Psychiatric: Orientation: alert and oriented x 3 Results & Data ([facility]) Vital Signs (Past 12 Hours) Vital Signs Pulse Resp BP Pulse Ox O2 Del Method 03/16/22 13:15 96/61 L 03/16/22 13:15 76 18 95 03/16/22 13:00 75 14 95 03/16/22 13:00 93/52 L 03/16/22 12:45 96/55 L 03/16/22 12:45 73 15 95 03/16/22 12:30 78 19 95 03/16/22 12:30 92/50 L 03/16/22 12:15 73 17 94 03/16/22 12:15 92/55 L 03/16/22 11:15 78 13 92 03/16/22 11:15 102/58 L 03/16/22 11:00 93 H 20 91 03/16/22 11:00 117/69 03/16/22 10:20 92/55 L 03/16/22 10:20 81 15 91 03/16/22 10:15 91/53 L 03/16/22 10:15 81 16 90 03/16/22 10:10 91/55 L 03/16/22 10:10 83 17 89 L 03/16/22 10:06 91/58 L 03/16/22 10:06 79 14 89 L 03/16/22 10:05 98/56 L 03/16/22 10:05 86 17 88 L 03/16/22 10:04 89/55 L 03/16/22 10:04 81 16 89 L 03/16/22 10:03 97/55 L 03/16/22 10:03 82 17 90 03/16/22 10:02 90/57 L 03/16/22 10:02 85 15 91 03/16/22 10:00 84 15 89 L 03/16/22 09:00 90 18 91 03/16/22 09:00 113/70 03/16/22 09:17 Room Air 03/16/22 08:00 91 H 18 94 03/16/22 08:00 122/98 03/16/22 08:00 86 03/16/22 07:00 76 14 90 03/16/22 07:00 120/73 03/16/22 06:00 90 16 92 Room Air 03/16/22 06:00 117/67 03/16/22 05:00 78 14 90 Room Air 03/16/22 04:00 77 15 91 Room Air 03/16/22 03:00 76 16 94 Room Air 03/16/22 03:00 128/70 03/16/22 02:45 96 H 12 94 Room Air 03/16/22 02:07 99/61 L 03/16/22 02:07 82 19 94 03/16/22 02:05 90 12 95 03/16/22 02:00 81 13 91
--- NOTE | 2022-03-16 13:57 | Discharge Summary ---
Date of Service March 16, 2022 Admission HPI Per Admitting Provider Mr. Soler is a very pleasant 66-year-old male with significant history of the bilateral carotid artery disease. He had a prior left CEA by Dr. Barrientos at [facility] in 2011. He is here for concern of recurrent stenosis. We saw him in October and at that time he was asymptomatic but the ultrasound demonstrated 60 to 79% stenosis on the left and 50 to 69% on the right. For that reason, we requested a CTA. Today, he has no complaints. He has no focal deficits, no motor or sensory loss, no slurred speech or visual changes. He is on aspirin and he continues to smoke 1 pack/day. His CT angiogram shows a greater 90% restenosis of the left internal carotid artery at its origin Admission Exam Per Admitting Provider Constitutional: WD/WN, vitals as above Neck: trachea midline Respiratory: normal respiratory effort, lungs clear to auscultation Cardiovascular: RRR, no murmur, no edema Vessels: normal peripheral pulses Extremities: normal capillary refill; no edema Gastrointestinal (Abdomen): normal bowel sounds, soft, nontender, no hepatosplenomegaly Musculoskeletal: no cyanosis or clubbing, extremities motor strength 5/5 Neurologic: normal touch/pain/proprioception, CN's II-XI intact bilaterally and moves all extremities Psychiatric: Orientation: alert and oriented x 3 Principal Diagnosis 1. s/p L TCAR 2. s/p Exploration of L neck incision and control of bleeding 3. Recurrent L ICA stenosis Discharge Exam Constitutional WD/WN, vitals as above well developed and well nourished Neck trachea midline Respiratory normal respiratory effort, lungs clear to auscultation normal respiratory effort; no respiratory distress Cardiovascular RRR, no murmur, no edema Vessels: normal peripheral pulses Extremities: normal capillary refill; no edema Gastrointestinal (Abdomen) normal bowel sounds, soft, nontender, no hepatosplenomegaly Musculoskeletal no cyanosis or clubbing, extremities motor strength 5/5 Skin + incision (dry and clean. Drain with min serous drainage.) Neurologic normal touch/pain/proprioception, CN's II-XI intact bilaterally and moves all extremities Psychiatric Orientation: alert and oriented x 3 Discharge Data Allergies Allergy/AdvReac Type Severity Reaction Status Date / Time No Known Allergies Allergy Verified 03/15/22 06:19 Consultations 03/15/22 10:49 Consult Soap Mixer Routine Procedures Performed Operation Date: 03/15/22 08:00 Actual Procedures p Left Transcarotid Artery Revascularization(Left) - Demond Bolivar MD Operation Date: 03/15/22 09:05 Actual Procedures p Exploration of Left Neck Wound, Control of Bleeding(Left) - Demond Bolivar MD Ordered Studies 03/15/22 07:17 EV angio carotid external LT Routine 03/15/22 07:18 US EV guide vascular access Routine Hospital Course (1) S/P arterial stent: Patient doing well. Will d/c today, POD #1 Total Time Total Time Spent Total Time Spent (In Minutes): 0 Discharge Plan Discharge Items Patient Disposition: Home - Self-Care Reason For Visit: Recurrent Left Internal Carotid Artery Discharge Diagnosis: 1. s/p LEFT Transcarotid Artery Revascularization 2. s/p Exploration of L neck wound and control of bleeding 3. Recurrent L ICA stenosis Condition on Discharge: Good Activity: Per Instructions section Non-emergency contact: Primary Care Provider and Surgeon Call non-emergency contact if: you have any medication questions, your pain is not controlled, your pain is concerning for you, you have a fever, your wound has increased redness and your wound has increased drainage Follow-up/Referrals: Luciano Jacobo DO [Primary Care Provider] - (Follow up with your PCP within 2 weeks) Demond Bolivar MD [Physician] - (Follow up with Dr Bolivar or Fozia Li PA-C in 2 weeks for staple removal. ) Diet: Heart Healthy Addtl Attending Provider Instructions: SPECIAL CARE INSTRUCTIONS: Medications: 1. DO NOT STOP TAKING PLAVIX(CLOPIDOGREL), ASPIRIN, OR STATIN(SIMVASTATIN) MEDICATIONS. IF YOU RUN OUT OF THESE MEDICATIONS, PLEASE CALL DR BOLIVAR'S OFFICE AT [phone]. Incision Care: * You may shower, but do not rub incision. You may let the warm soapy water run over it. Be sure to dry the incision well after bathing. * Do not shave directly over the incision until it is healed. * DO NOT IMMERSE THE INCISION IN A TUB/POOL/etc. UNTIL HEALED. Restrictions: * Do not drive for at least one week or if you are still taking any narcotic pain medication. * Do not lift anything heavier than a gallon of milk for one week after going home. Possible Complications: * Numbness - It is normal to have some numbness around the incision. Numbness can extend beyond the incision to areas of the neck, ear and face. The numbness is due to bruising of nerves during the surgery and will gradually improve over a period of months. * Hoarseness/Difficulty Speaking and Swallowing - The bruising of nerves in the neck can also cause a hoarse voice, difficulty speaking or swallowing. This may improve over time, HOWEVER, if it continues for more than a few days please contact our office ([phone]). * Excessive Swelling - There will be some swelling immediately after surgery which usually resolves within one week. If you notice that the swelling is getting worse, notify your surgeon ([phone]). * Drainage/Bleeding - If there is any drainage or bleeding, it should be a very small amount (less than a teaspoon per day). If you have excessive bleeding or drainage from the incision, call your surgeon ([phone]) right away. ACTIVATION OF EMERGENCY MEDICAL SYSTEM: Call 911, immediately, if you experience any of the following: Warning Signs and Symptoms of Stroke: * Sudden numbness or weakness of the face, arm or leg, especially on one side of the body * Sudden confusion, trouble speaking or understanding * Sudden trouble seeing in one or both eyes * Sudden trouble walking, dizziness, loss of balance or coordination * Sudden severe headache with no cause Do not delay calling 911 if you experience any warning signs or symptoms of a stroke. Delay in seeking medical attention may affect what treatments can be given to you. Risk Factors for Stroke: You can reduce your chances of stroke by working with your medical provider to adopt a healthy lifestyle. Some specific ways to lower your chance of stroke are: * If you are a smoker, now is the time to stop smoking cigarettes * If you are diabetic, improve the control of your blood sugars * Avoid excessive amounts of alcohol * Control high blood pressure * Lose weight if you are overweight * Be sure to lead an active lifestyle * Eat a healthy diet low in salt, cholesterol and fat You should know about other risk factors for stroke that you are unable to control. These include: * Age 55 years or older * Male gender * Certain racial groups: , or / * Family History of Stroke, Mini stroke or Heart Attack * Sickle Cell Disease You will be receiving a call from the Vascular Surgery Nurse after you are discharged. FOLLOW UP VISIT: It is important for you to keep your follow up appointments with your medical provider. Keep any scheduled doctor appointments. Pending Studies at Discharge: No Stand-Alone Forms: My [facility], Smoking Cessation Medications and DC Order Prescriptions: New oxycodone-acetaminophen [Percocet] 5-325 mg Tablet 1 - 2 tab PO Q6H PRN (Reason: pain) Qty: 30 0RF Continued lisinopril 10 mg tablet 10 mg PO .COMPLEX Qty: 30 5RF Rx Instructions: 10 mg PO daily along with 5mg tablet; lisinopril 5 mg tablet 5 mg PO .COMPLEX Qty: 30 5RF Rx Instructions: 5 mg PO daily along with 10mg tablet; paroxetine HCl [Paxil] 10 mg tablet 10 mg PO DAILY Qty: 30 2RF simvastatin 40 mg tablet 40 mg PO QPM Qty: 90 3RF aspirin 81 mg tablet,delayed release (DR/EC) 81 mg PO QAM metoprolol succinate 50 mg tablet extended release 24 hr 50 mg PO DAILY Qty: 30 5RF clopidogrel 75 mg Tablet 75 mg PO QAM Trelegy Ellipta 100-62.5-25 mcg blister with device 100 inh INHALATION QAM albuterol sulfate [Ventolin HFA] 90 mcg/actuation HFA aerosol inhaler 90 mcg INHALATION QID PRN (Reason: Shortness Of Breath Or Wheezing) Discharge Orders: Discharge Order (Routine); Ordered 03/16/22 Ordered By: Fozia Li Admission Data Admit Date/Time: 03/15/22 07:44 Attending Provider: Demond Bolivar Admit Provider: Demond Bolivar Primary Care Provider: Luciano Jacobo Other Providers: Tr Washburn ; Vaibhav Knutson ; Anatoly Shea ; Asad Soliz ; Sonny Miller ; Saurabh Hammonds ; Christian Saavedra ; Lorenzo Morris ; Marta Hendrix
== END 2022-03-16 14:45 | disposition home or self-care (01) | DRG 35 ==
LOC: ASU 05:53 → 1E 07:44
PROC: EV.TCAR (2022-03-15 08:00)